=== PATIENT | female | born 1980 | race Caucasian/White ===

== ENCOUNTER → 2022-10-13 | Outpatient (CLI) | payer OTHER | END | disposition home or self-care (01) | LOC: MRI 01:00 | PROVIDERS: ATTEND Podiatrist Foot & Ankle Surgery | DX: M19.171 Post-traumatic osteoarthritis, right ankle and foot (principal) ==

== ENCOUNTER 2023-01-11 21:31 | Emergency (ER) | payer OTHER | END 2023-01-11 21:55 | disposition left against medical advice (07) | LOC: ED 21:31 | DX: Z53.21 Procedure and treatment not carried out due to patient leaving prior to being seen by health care provider (principal) ==

== ENCOUNTER 2023-01-11 22:12 | Emergency (ER) | payer OTHER ==
[~2023-01-11] VITALS: Ht 165.1 cm; Wt 83.9 kg
[2023-01-11 22:16] VITALS: BP 116/80
== END 2023-01-11 22:42 | disposition home or self-care (01) ==
LOC: ED 22:12
DX: L72.8 Other follicular cysts of the skin and subcutaneous tissue (principal); Z88.0 Allergy status to penicillin

== ENCOUNTER → 2023-03-01 | Outpatient (CLI) | payer OTHER | END | disposition home or self-care (01) | LOC: RESCLI 02:57 | PROVIDERS: ATTEND Internal Medicine | DX: K21.9 Gastro-esophageal reflux disease without esophagitis (principal); J45.909 Unspecified asthma, uncomplicated; M25.579 Pain in unspecified ankle and joints of unspecified foot; F10.90 Alcohol use, unspecified, uncomplicated; B00.9 Herpesviral infection, unspecified; L30.9 Dermatitis, unspecified; R11.0 Nausea; E88.81 Metabolic syndrome and other insulin resistance; Z91.09 Other allergy status, other than to drugs and biological substances; Z79.82 Long term (current) use of aspirin; Z98.890 Other specified postprocedural states; Z79.899 Other long term (current) drug therapy ==

== ENCOUNTER → 2023-04-12 | Outpatient (CLI) | payer OTHER | END | disposition home or self-care (01) | LOC: RESCLI 09:51 | PROVIDERS: ATTEND Internal Medicine | DX: K21.9 Gastro-esophageal reflux disease without esophagitis (principal); J45.909 Unspecified asthma, uncomplicated; Z91.09 Other allergy status, other than to drugs and biological substances; E88.81 Metabolic syndrome and other insulin resistance; Z98.890 Other specified postprocedural states; Z79.899 Other long term (current) drug therapy ==

== ENCOUNTER → 2023-05-25 | Outpatient (CLI) | payer OTHER | END | disposition home or self-care (01) | LOC: RAD 09:33 | PROVIDERS: ATTEND Podiatrist Foot & Ankle Surgery | DX: M19.071 Primary osteoarthritis, right ankle and foot (principal); M77.31 Calcaneal spur, right foot; M85.861 Other specified disorders of bone density and structure, right lower leg ==

== ENCOUNTER 2023-10-28 08:55 | Emergency (ER) | payer OTHER ==
[~2023-10-28] VITALS: Ht 162.5 cm; Wt 70.3 kg
[2023-10-28 09:02] VITALS: BP 125/76
[2023-10-28] MEDS ORDERED: IBU800 MG PO (09:03)
[2023-10-28] MEDS ORDERED: PREDNISONE20 M1 PO (09:04)
== END 2023-10-28 11:12 | disposition home or self-care (01) ==
LOC: ED 08:55
DX: M25.571 Pain in right ankle and joints of right foot (principal); Z91.018 Allergy to other foods; Z98.890 Other specified postprocedural states

== ENCOUNTER → 2024-01-12 | Outpatient (CLI) | payer OTHER ==
[~2024-01-12] MED LIST: IBU800 MG PO; PREDNISONE20 M1 PO
== END ==
LOC: RAD 13:58
PROVIDERS: ATTEND Podiatrist
DX: M19.072 Primary osteoarthritis, left ankle and foot (principal); M19.071 Primary osteoarthritis, right ankle and foot

== ENCOUNTER → 2024-02-15 | Outpatient (CLI) | payer OTHER ==
[~2024-02-15] MED LIST changes: +IOHEXOL 300 MG/ML 100 ML VIAL IV ONE
== END | disposition home or self-care (01) ==
LOC: CT 11:25
PROVIDERS: ATTEND Podiatrist
DX: M19.071 Primary osteoarthritis, right ankle and foot (principal); M25.471 Effusion, right ankle; M76.61 Achilles tendinitis, right leg

== ENCOUNTER → 2024-02-19 | Outpatient (CLI) | payer OTHER ==
[~2024-02-19] MED LIST changes: -IOHEXOL 300 MG/ML 100 ML VIAL IV ONE
== END | disposition home or self-care (01) ==
LOC: US 02:18
PROVIDERS: ATTEND Podiatrist
DX: I73.9 Peripheral vascular disease, unspecified (principal)

== ENCOUNTER → 2024-03-04 | Outpatient (CLI) | payer OTHER | END | disposition home or self-care (01) | LOC: RESCLI 02:45 | PROVIDERS: ATTEND Internal Medicine | DX: Z12.39 Encounter for other screening for malignant neoplasm of breast (principal); K21.9 Gastro-esophageal reflux disease without esophagitis; M79.606 Pain in leg, unspecified; E55.9 Vitamin D deficiency, unspecified; J30.2 Other seasonal allergic rhinitis; F41.9 Anxiety disorder, unspecified; E78.00 Pure hypercholesterolemia, unspecified; Z79.899 Other long term (current) drug therapy ==

== ENCOUNTER → 2024-05-08 | Outpatient (CLI) | payer OTHER ==
[2024-05-08 08:28] LABS: BASO # 0.1 10*3/uL (0.0-0.1); BASO % 0.5 % (0.0-1.0); EOS # 0.2 10*3/uL (0.0-0.4); EOS % 1.8 % (1.0-4.0); HEMATOCRIT 37.9 % (37.0-47.0); LYMPH # 2.7 10*3/uL (1.3-4.4); LYMPH % 28.1 % (27.0-41.0); MEAN CELL VOLUME 92.9 fl (81.0-99.0); MEAN CORPUSCULAR HGB 28.7 pg (27.0-31.0); MEAN CORPUSCULAR HGB CONC 30.9 g/dl (33.0-37.0); MEAN PLATELET VOLUME 8.1 fl (9.6-12.3); MONO % 10.4 % (3.0-9.0); NEUT # 5.6 10*3/uL (2.3-7.9); NEUT % 58.3 % (47.0-73.0); PLATELET COUNT AUTOMATED 457 10*3/uL (130-400); RED BLOOD COUNT 4.08 10*6/uL (4.10-5.10); WHITE BLOOD COUNT 9.6 10*3/uL (4.8-10.8)
[2024-05-08 09:11] LABS: ALKALINE PHOSPHATASE 50 U/L (46-116); BUN 11 mg/dl (9-23); CHLORIDE 106 mmol/L (98-107); CHOLESTEROL 196 mg/dL (<200); LDL CHOLESTEROL 99 mg/dL (9-159); POTASSIUM 3.9 mmol/L (3.4-5.1); SGPT/ALT 14 U/L (5-49); TOTAL PROTEIN 6.3 gm/dL (6.0-8.0); TRIGLYCERIDES 77 mg/dl (<150)
== END | disposition home or self-care (01) ==
LOC: LAB 02:17 → RAD 15:26 → LAB 15:31
PROVIDERS: Student in an Organized Health Care Education/Training Program; ATTEND Podiatrist
DX: M19.071 Primary osteoarthritis, right ankle and foot (principal); M25.471 Effusion, right ankle; M77.31 Calcaneal spur, right foot; Z79.899 Other long term (current) drug therapy

== ENCOUNTER → 2024-05-15 | Outpatient (CLI) | payer OTHER | END | disposition home or self-care (01) | LOC: RESCLI 01:46 | PROVIDERS: ATTEND Internal Medicine | DX: K21.9 Gastro-esophageal reflux disease without esophagitis (principal); J45.909 Unspecified asthma, uncomplicated; Z91.09 Other allergy status, other than to drugs and biological substances; E88.810 Metabolic syndrome; M25.579 Pain in unspecified ankle and joints of unspecified foot; M19.171 Post-traumatic osteoarthritis, right ankle and foot; G90.521 Complex regional pain syndrome I of right lower limb; M19.90 Unspecified osteoarthritis, unspecified site; E53.8 Deficiency of other specified B group vitamins; M79.606 Pain in leg, unspecified; G61.82 Multifocal motor neuropathy; R21 Rash and other nonspecific skin eruption; R11.0 Nausea; Z79.899 Other long term (current) drug therapy ==

== ENCOUNTER 2024-05-29 00:47 | Inpatient (IN) | payer OTHER ==
[2024-05-29] VITALS (9 sets, daily range): BP systolic 115–157; BP diastolic 60–85
[~2024-05-29] VITALS: Ht 162.5 cm; Wt 78.9 kg
[2024-05-29] MEDS ORDERED: Lactated Ringer's Solution 1,000 ML IV ONE ×3 (09:44→15:46)
[2024-05-29] MEDS ORDERED: ceFAZolin sodium/sodium chlor 10 ML IV ONE ×3 (09:44→14:49)
[2024-05-29] MEDS ORDERED: BUPIVACAINE 0.5% 50 ML VIAL ONE (11:36)
[2024-05-29] MEDS ORDERED: ACETAMINOPHEN 100 ML IV ONE ×2 (11:41→16:52)
[2024-05-29] MEDS ORDERED: HYDROmorphONE Hydrochloride 0.5 MG/0.5 ML SYRINGE IV ONE (16:00)
[2024-05-29] MEDS ORDERED: HYDROmorphONE Hydrochloride 0.5 MG/0.5 ML SYRINGE ONE (17:10)
[2024-05-29] MEDS ORDERED: BISACODYL 5 MG TAB PO PRN (18:20)
[2024-05-29] MEDS ORDERED: TEMAZEPAM 15 MG CAP PO PRN (18:20)
[2024-05-29] MEDS ORDERED: ACETAMINOPHEN 325 MG TAB PO PRN (18:20)
[2024-05-29] MEDS ORDERED: MORPHINE Sulfate 2 MG/ML SYR IV PRN (18:20)
[2024-05-29] MEDS ORDERED: Magnesium Hydroxide 30 ML UDC PO PRN (18:20)
[2024-05-29] MEDS ORDERED: Ondansetron Hydrochloride 4 MG/2 ML VIAL IV PRN (18:20)
[2024-05-29] MEDS ORDERED: BISACODYL 10 MG SUPP R PRN (18:20)
[2024-05-29] MEDS ORDERED: ACETAMINOPHEN 650 MG SUPP R PRN (18:20)
[2024-05-29] MEDS ORDERED: SUGAMMADEX SODIUM 200 MG/2 ML VIAL IV ONE (20:22)
[2024-05-29] MEDS ORDERED: Midazolam Hydrochloride 2 MG/2 ML VIAL IV ONE (20:22)
[2024-05-29] MEDS ORDERED: Lidocaine Hydrochloride 2% 5 ML SDV IV ONE (20:22)
[2024-05-29] MEDS ORDERED: fentaNYL CITRATE 100 MCG/2 ML VIAL IV ONE (20:22)
[2024-05-29] MEDS ORDERED: SEVOFLURANE 250 ML BOT INH ONE (20:22)
[2024-05-29] MEDS ORDERED: Ondansetron Hydrochloride 4 MG/2 ML VIAL IV ONE (20:22)
[2024-05-29] MEDS ORDERED: PROPOFOL 200 MG/20 ML VIAL IV ONE (20:22)
[2024-05-29] MEDS ORDERED: MAGNESIUM SULFATE 1 GM/2 ML VIAL IV ONE (20:22)
[2024-05-29] MEDS ORDERED: Ketorolac Tromethamine 30 MG/ML VIAL IV ONE (20:22)
[2024-05-29] MEDS ORDERED: Dexamethasone Sodium Phospha 4 MG/ML VIAL IV ONE (20:22)
[2024-05-29] MEDS ORDERED: Ketamine Hydrochloride 500 MG/10 ML VIAL IV ONE (20:22)
[2024-05-29] MEDS ORDERED: ceFAZolin sodium 1 GM in SYRINGE INFUSION 10 ML IV SCH (22:00)
[2024-05-29] MEDS ORDERED: Doxycycline Hyclate 100 MG CAP PO SCH (22:00)
[2024-05-30] VITALS: BP 98/58
[2024-05-30 06:21] LABS: ACT PARTIAL THROMBO TIME 23.7 SECONDS (20.0-32.1)
[2024-05-30 06:23] LABS: HEMATOCRIT 32.1 % (37.0-47.0); MEAN CELL VOLUME 89.4 fl (81.0-99.0); MEAN CORPUSCULAR HGB 29.2 pg (27.0-31.0); MEAN CORPUSCULAR HGB CONC 32.7 g/dl (33.0-37.0); MEAN PLATELET VOLUME 8.5 fl (9.6-12.3); PLATELET COUNT AUTOMATED 464 10*3/uL (130-400); RED BLOOD COUNT 3.59 10*6/uL (4.10-5.10); RED CELL DISTRI WIDTH 13.1 % (0-14.5); WHITE BLOOD COUNT 13.5 10*3/uL (4.8-10.8)
[2024-05-30 06:26] LABS: MANUAL DIFF REFLEX YES
[2024-05-30 06:39] LABS: ALKALINE PHOSPHATASE 46 U/L (46-116); BUN 5 mg/dl (9-23); CHLORIDE 106 mmol/L (98-107); POTASSIUM 3.5 mmol/L (3.4-5.1); SGPT/ALT 9 U/L (5-49); TOTAL PROTEIN 5.8 gm/dL (6.0-8.0)
[2024-05-30 06:54] LABS: ATYPICAL LYMPHS 1 % (0-0); OVALOCYTES FEW; PLATELET SUFFICIENCY HIGH (NORMAL); POLYCHROMASIA SLIGHT; ROULEAUX SLIGHT; TOTAL CELLS COUNTED 100 #CELLS
[2024-05-30 08:00] VITALS: BP 116/68
[2024-05-30] MEDS ORDERED: RIVAROXABAN 10 MG TAB PO SCH (10:00)
[2024-05-30] MEDS ORDERED: FLUCONAZOLE 150 MG TAB PO ONE (10:40)
[2024-05-30 11:09] LABS: VITAMIN D, 25-HYDROXY 29.2 ng/mL (30-100)
[2024-05-30 12:00] VITALS: BP 103/80
[2024-05-30] MEDS ORDERED: Acetaminophen/Oxycodone 5 MG/325 MG TABLET PO PRN (14:50)
[2024-05-30 16:00] VITALS: BP 116/77
[2024-05-30 20:00] VITALS: BP 116/69
[2024-05-31] VITALS: BP 112/62
[2024-05-31 07:02] LABS: BASO # 0.1 10*3/uL (0.0-0.1); BASO % 0.5 % (0.0-1.0); EOS # 0.1 10*3/uL (0.0-0.4); EOS % 0.9 % (1.0-4.0); HEMATOCRIT 32.6 % (37.0-47.0); LYMPH # 2.4 10*3/uL (1.3-4.4); LYMPH % 22.5 % (27.0-41.0); MEAN CELL VOLUME 92.4 fl (81.0-99.0); MEAN CORPUSCULAR HGB 29.5 pg (27.0-31.0); MEAN CORPUSCULAR HGB CONC 31.9 g/dl (33.0-37.0); MEAN PLATELET VOLUME 8.7 fl (9.6-12.3); MONO # 1.5 10*3/uL (0.1-1.0); MONO % 13.6 % (3.0-9.0); NEUT # 6.7 10*3/uL (2.3-7.9); PLATELET COUNT AUTOMATED 410 10*3/uL (130-400); RED BLOOD COUNT 3.53 10*6/uL (4.10-5.10); RED CELL DISTRI WIDTH 13.2 % (0-14.5); WHITE BLOOD COUNT 10.8 10*3/uL (4.8-10.8)
[2024-05-31 07:04] LABS: CHLORIDE 106 mmol/L (98-107); POTASSIUM 3.5 mmol/L (3.4-5.1)
[2024-05-31 07:07] LABS: BUN < 5 mg/dl (9-23)
[2024-05-31 08:15] VITALS: BP 105/90
[2024-05-31] MEDS ORDERED: DOXYCYCLINE MO100 MG PO (10:53)
[2024-05-31] MEDS ORDERED: COLACE100 MG PO (10:53)
[2024-05-31] MEDS ORDERED: XARELTO10 MG PO (10:53)
[2024-05-31] MEDS ORDERED: OXYCODONE-ACET1 EAC3 PO (10:53)
[2024-05-31 12:00] VITALS: BP 116/64
== END 2024-05-31 13:51 | disposition home or self-care (01) | DRG 469 ==
LOC: SDC 00:47 → 4E 10:26 → SDC 10:30 → 4E 05-31 13:51 → SDC 06-21 13:15
PROVIDERS: Student in an Organized Health Care Education/Training Program; ADMIT Internal Medicine; ATTEND Internal Medicine
PROC: 0SRF0JZ Replacement of Right Ankle Joint with Synthetic Substitute, Open Approach (ICD-10-PCS; principal; 2024-05-29)
PROC: 0SSF04Z Reposition Right Ankle Joint with Internal Fixation Device, Open Approach (ICD-10-PCS; 2024-05-29)
PROC: 0YQH0ZZ Repair Right Lower Leg, Open Approach (ICD-10-PCS; 2024-05-29)
DX: M19.171 Post-traumatic osteoarthritis, right ankle and foot (principal); E44.0 Moderate protein-calorie malnutrition; R65.10 Systemic inflammatory response syndrome (SIRS) of non-infectious origin without acute organ dysfunction; J45.909 Unspecified asthma, uncomplicated; Z96.661 Presence of right artificial ankle joint; K21.9 Gastro-esophageal reflux disease without esophagitis; D72.829 Elevated white blood cell count, unspecified; D64.9 Anemia, unspecified; D75.839 Thrombocytosis, unspecified; E55.9 Vitamin D deficiency, unspecified; Z68.29 Body mass index [BMI] 29.0-29.9, adult

== ENCOUNTER → 2024-06-07 | Outpatient (CLI) | payer OTHER ==
[~2024-06-07] MED LIST changes: +COLACE100 MG PO; +DOXYCYCLINE MO100 MG PO; +OXYCODONE-ACET1 EAC3 PO; +XARELTO10 MG PO
== END | disposition home or self-care (01) ==
LOC: RESCLI 03:54
PROVIDERS: ATTEND Internal Medicine
DX: Z29.9 Encounter for prophylactic measures, unspecified (principal); G47.33 Obstructive sleep apnea (adult) (pediatric); K21.9 Gastro-esophageal reflux disease without esophagitis; J45.909 Unspecified asthma, uncomplicated; E55.9 Vitamin D deficiency, unspecified; E78.00 Pure hypercholesterolemia, unspecified; Z91.041 Radiographic dye allergy status; F41.9 Anxiety disorder, unspecified; Z88.8 Allergy status to other drugs, medicaments and biological substances; Z98.890 Other specified postprocedural states; Z79.899 Other long term (current) drug therapy

== ENCOUNTER → 2024-06-25 | Outpatient (CLI) | payer OTHER | END | disposition home or self-care (01) | LOC: RAD 06-17 15:19 | PROVIDERS: ATTEND Podiatrist | DX: M19.071 Primary osteoarthritis, right ankle and foot (principal); M79.89 Other specified soft tissue disorders; M77.31 Calcaneal spur, right foot ==

== ENCOUNTER → 2024-08-22 | Outpatient (CLI) | payer OTHER ==
[~2024-08-22] MED LIST changes: +TRAMADOL HCL50 MG PO; +VIBRA-TAB100 MG PO
[2024-08-22 10:11] LABS: BASO # 0.1 10*3/uL (0.0-0.1); BASO % 0.7 % (0.0-1.0); EOS # 0.3 10*3/uL (0.0-0.4); EOS % 2.8 % (1.0-4.0); HEMATOCRIT 38.3 % (37.0-47.0); MEAN CELL VOLUME 87.6 fl (81.0-99.0); MEAN CORPUSCULAR HGB CONC 30.8 g/dl (33.0-37.0); MEAN PLATELET VOLUME 8.6 fl (9.6-12.3); MONO # 0.9 10*3/uL (0.1-1.0); MONO % 9.3 % (3.0-9.0); NEUT # 5.9 10*3/uL (2.3-7.9); PLATELET COUNT AUTOMATED 532 10*3/uL (130-400); RED BLOOD COUNT 4.37 10*6/uL (4.10-5.10); RED CELL DISTRI WIDTH 13.3 % (0-14.5); WHITE BLOOD COUNT 9.9 10*3/uL (4.8-10.8)
[2024-08-22 10:40] LABS: ALKALINE PHOSPHATASE 91 U/L (46-116); BUN 9 mg/dl (9-23); CHLORIDE 107 mmol/L (98-107); POTASSIUM 3.9 mmol/L (3.4-5.1); SGPT/ALT < 7 U/L (5-49); TOTAL PROTEIN 7.4 gm/dL (6.0-8.0)
== END | disposition home or self-care (01) ==
LOC: RESCLI 07:16 → LAB 07:16
PROVIDERS: Student in an Organized Health Care Education/Training Program; ATTEND Internal Medicine
DX: Z01.812 Encounter for preprocedural laboratory examination (principal)

== ENCOUNTER → 2024-08-28 | Day surgery (SDC) | payer OTHER ==
[~2024-08-28] VITALS: Ht 162.5 cm; Wt 80.3 kg
[~2024-08-28] MED LIST changes: +BUPIVACAINE 0.5% 30 ML IV ONE; +Dexamethasone Sodium Phospha 4 MG/ML VIAL IV ONE; +HYDROmorphONE Hydrochloride 0.5 MG/0.5 ML SYRINGE IV PRN; +Ketorolac Tromethamine 30 MG/ML VIAL IV ONE; +Lactated Ringer's Solution 1,000 ML IV ONE; +Lactated Ringer's Solution 1,000 ML IV SCH; +Lidocaine Hydrochloride 5 ML VIAL IV ONE; +Midazolam Hydrochloride 2 MG/2 ML VIAL IV ONE; +Ondansetron Hydrochloride 4 MG/2 ML VIAL IV ONE; +PREDNISONE10 M1 PO; +PROPOFOL 200 MG/20 ML VIAL IV ONE; +Vancomycin Hydrochloride 1,000 MG VIAL ONE; +ceFAZolin sodium 2GM/20ML IV ONE; +ceFAZolin sodium/sodium chlor 0 ML IV ONE; +ceFAZolin sodium/sodium chlor 20 ML IV ONE; +fentaNYL CITRATE 100 MCG/2 ML VIAL IV ONE
[2024-08-28 09:57] VITALS: BP 121/70
[2024-08-28 13:22] VITALS: BP 103/52
[2024-08-28 13:32] VITALS: BP 120/71
[2024-08-28 13:48] VITALS: BP 121/75
== END | disposition home or self-care (01) ==
LOC: SDC 08-23 10:15
PROVIDERS: ATTEND Podiatrist
DX: T84.84XA Pain due to internal orthopedic prosthetic devices, implants and grafts, initial encounter (principal); J45.909 Unspecified asthma, uncomplicated; K21.9 Gastro-esophageal reflux disease without esophagitis; E78.00 Pure hypercholesterolemia, unspecified; E53.8 Deficiency of other specified B group vitamins; F41.9 Anxiety disorder, unspecified; Z96.661 Presence of right artificial ankle joint; Y79.3 Surgical instruments, materials and orthopedic devices (including sutures) associated with adverse incidents

== ENCOUNTER 2024-09-02 07:54 | Emergency (ER) | payer OTHER ==
[~2024-09-02] VITALS: Ht 167.6 cm
[~2024-09-02 07:54] MED LIST changes: -BUPIVACAINE 0.5% 30 ML IV ONE; -Dexamethasone Sodium Phospha 4 MG/ML VIAL IV ONE; -HYDROmorphONE Hydrochloride 0.5 MG/0.5 ML SYRINGE IV PRN; -Ketorolac Tromethamine 30 MG/ML VIAL IV ONE; -Lactated Ringer's Solution 1,000 ML IV ONE; -Lactated Ringer's Solution 1,000 ML IV SCH; -Lidocaine Hydrochloride 5 ML VIAL IV ONE; -Midazolam Hydrochloride 2 MG/2 ML VIAL IV ONE; -Ondansetron Hydrochloride 4 MG/2 ML VIAL IV ONE; -PREDNISONE10 M1 PO; -PROPOFOL 200 MG/20 ML VIAL IV ONE; -Vancomycin Hydrochloride 1,000 MG VIAL ONE; -ceFAZolin sodium 2GM/20ML IV ONE; -ceFAZolin sodium/sodium chlor 0 ML IV ONE; -ceFAZolin sodium/sodium chlor 20 ML IV ONE; -fentaNYL CITRATE 100 MCG/2 ML VIAL IV ONE
[2024-09-02 08:03] VITALS: BP 110/57
[2024-09-02] MEDS ORDERED: PREDNISONE10 M1 PO (08:09)
[2024-09-02] MEDS ORDERED: methylPREDNISolone acetate 40 MG/ML VIAL IM ONE (08:10)
== END 2024-09-02 08:32 | disposition home or self-care (01) ==
LOC: ED 07:54
DX: L25.1 Unspecified contact dermatitis due to drugs in contact with skin (principal); T49.8X5A Adverse effect of other topical agents, initial encounter; J45.909 Unspecified asthma, uncomplicated; Z88.8 Allergy status to other drugs, medicaments and biological substances; Z98.890 Other specified postprocedural states; Z98.51 Tubal ligation status; Y92.89 Other specified places as the place of occurrence of the external cause

== ENCOUNTER 2024-10-06 09:49 | Emergency (ER) | payer OTHER ==
[~2024-10-06] VITALS: Ht 162.5 cm; Wt 79.4 kg
[~2024-10-06 09:49] MED LIST changes: +PREDNISONE10 M1 PO
[2024-10-06 10:06] VITALS: BP 148/88
[2024-10-06] MEDS ORDERED: Acetaminophen/Oxycodone 5 MG/325 MG TABLET PO ONE (10:15)
== END 2024-10-06 11:01 | disposition home or self-care (01) ==
LOC: ED 09:49
DX: M25.571 Pain in right ankle and joints of right foot (principal); M79.89 Other specified soft tissue disorders; J45.909 Unspecified asthma, uncomplicated; Z88.8 Allergy status to other drugs, medicaments and biological substances; Z98.890 Other specified postprocedural states; Z98.51 Tubal ligation status

== ENCOUNTER → 2024-10-16 | Outpatient (CLI) | payer OTHER | END | disposition home or self-care (01) | LOC: MRI 01:36 | PROVIDERS: ATTEND Podiatrist | DX: S86.011A Strain of right Achilles tendon, initial encounter (principal); M66.371 Spontaneous rupture of flexor tendons, right ankle and foot; M19.071 Primary osteoarthritis, right ankle and foot; M65.871 Other synovitis and tenosynovitis, right ankle and foot; M79.89 Other specified soft tissue disorders; X58.XXXA Exposure to other specified factors, initial encounter; Y93.89 Activity, other specified; Y92.89 Other specified places as the place of occurrence of the external cause; Y99.8 Other external cause status ==

== ENCOUNTER → 2024-12-23 | Outpatient (CLI) | payer OTHER | END | disposition home or self-care (01) | LOC: RESCLI 09:45 | PROVIDERS: ATTEND Internal Medicine | DX: J32.9 Chronic sinusitis, unspecified (principal); Z79.899 Other long term (current) drug therapy; Z98.890 Other specified postprocedural states; Z88.8 Allergy status to other drugs, medicaments and biological substances ==

== ENCOUNTER → 2025-03-17 | Outpatient (CLI) | payer OTHER ==
[2025-03-17 09:45] LABS: URINE AMPHETAMINES Negative (1000ng/ml); URINE BARBITURATES Negative (200ng/ml); URINE BENZODIAZEPINES Negative (200ng/ml); URINE CANNABINOIDS (THC) Negative (50ng/ml); URINE COCAINE Negative (300ng/ml); URINE METHADONE Negative (300ng/ml); URINE OPIATES Negative (300ng/ml); URINE PHENCYCLIDINE Negative (25ng/ml)
== END | disposition home or self-care (01) ==
LOC: RESCLI 08:05
PROVIDERS: ATTEND Student in an Organized Health Care Education/Training Program
DX: Z12.4 Encounter for screening for malignant neoplasm of cervix (principal); G89.29 Other chronic pain; M25.579 Pain in unspecified ankle and joints of unspecified foot; J45.909 Unspecified asthma, uncomplicated; M62.838 Other muscle spasm; K21.9 Gastro-esophageal reflux disease without esophagitis; R21 Rash and other nonspecific skin eruption; B00.9 Herpesviral infection, unspecified; R11.0 Nausea; Z12.39 Encounter for other screening for malignant neoplasm of breast; Z12.11 Encounter for screening for malignant neoplasm of colon; Z88.8 Allergy status to other drugs, medicaments and biological substances; Z98.890 Other specified postprocedural states; Z79.899 Other long term (current) drug therapy

== ENCOUNTER → 2025-05-20 | Outpatient (CLI) | payer OTHER | END | disposition home or self-care (01) | LOC: RESCLI 04:10 | PROVIDERS: ATTEND Internal Medicine | DX: S99.911A Unspecified injury of right ankle, initial encounter (principal); M25.571 Pain in right ankle and joints of right foot; M62.838 Other muscle spasm; K21.9 Gastro-esophageal reflux disease without esophagitis; J45.909 Unspecified asthma, uncomplicated; R21 Rash and other nonspecific skin eruption; R11.0 Nausea; B00.9 Herpesviral infection, unspecified; Z79.899 Other long term (current) drug therapy; Z84.89 Family history of other specified conditions; Z88.8 Allergy status to other drugs, medicaments and biological substances; Z91.041 Radiographic dye allergy status; X58.XXXA Exposure to other specified factors, initial encounter; Y93.44 Activity, trampolining; Y92.89 Other specified places as the place of occurrence of the external cause; Y99.8 Other external cause status ==

== ENCOUNTER → 2025-08-13 | Outpatient (CLI) | payer OTHER | END | disposition home or self-care (01) | LOC: MAMMO 02:15 | PROVIDERS: ATTEND Nurse Practitioner Women's Health | DX: Z12.31 Encounter for screening mammogram for malignant neoplasm of breast (principal); D25.9 Leiomyoma of uterus, unspecified; N83.291 Other ovarian cyst, right side ==

== ENCOUNTER → 2025-08-18 | Outpatient (CLI) | payer OTHER ==
[2025-08-18 09:18] LABS: BASO # 0.1 10*3/uL (0.0-0.1); BASO % 0.7 % (0.0-1.0); EOS # 0.1 10*3/uL (0.0-0.4); EOS % 0.6 % (1.0-4.0); MEAN CELL VOLUME 82.9 fl (81.0-99.0); MEAN CORPUSCULAR HGB 24.6 pg (27.0-31.0); MEAN PLATELET VOLUME 8.3 fl (9.6-12.3); MONO # 1.1 10*3/uL (0.1-1.0); MONO % 7.8 % (3.0-9.0); NEUT # 11.0 10*3/uL (2.3-7.9); NEUT % 76.5 % (47.0-73.0); NUCLEATED RED BLOOD CELL 0.0 % (0.0-0.0); NUCLEATED RED BLOOD CELL 0.0 10*3/uL (0.0-0.0); PLATELET COUNT AUTOMATED 531 10*3/uL (130-400); RED CELL DISTRI WIDTH 14.3 % (0-14.5)
[2025-08-18 09:52] LABS: URINE AMPHETAMINES Negative (1000ng/ml); URINE BARBITURATES Negative (200ng/ml); URINE BENZODIAZEPINES Negative (200ng/ml); URINE CANNABINOIDS (THC) Negative (50ng/ml); URINE COCAINE Negative (300ng/ml); URINE METHADONE Negative (300ng/ml); URINE OPIATES Negative (300ng/ml); URINE PHENCYCLIDINE Negative (25ng/ml)
== END | disposition home or self-care (01) ==
LOC: LAB 08:56
PROVIDERS: ATTEND Internal Medicine
DX: N92.0 Excessive and frequent menstruation with regular cycle (principal); R53.83 Other fatigue; M25.579 Pain in unspecified ankle and joints of unspecified foot

== ENCOUNTER → 2025-08-19 | Outpatient (CLI) | payer OTHER | END | disposition home or self-care (01) | LOC: RESCLI 02:37 | PROVIDERS: ATTEND Internal Medicine | DX: E66.9 Obesity, unspecified (principal); E78.6 Lipoprotein deficiency; E53.8 Deficiency of other specified B group vitamins; M25.579 Pain in unspecified ankle and joints of unspecified foot; B00.9 Herpesviral infection, unspecified; M62.838 Other muscle spasm; K21.9 Gastro-esophageal reflux disease without esophagitis; M79.606 Pain in leg, unspecified; R21 Rash and other nonspecific skin eruption; J45.909 Unspecified asthma, uncomplicated; R11.0 Nausea; Z79.899 Other long term (current) drug therapy ==